=== PATIENT | male | born 1995 | race Caucasian/White ===

== ENCOUNTER 2019-08-30 23:58 | Emergency (ER) | payer BC ==
--- NOTE | 2019-08-31 02:11 | EDM.PDOC ---
ED HPI GENERAL MEDICAL PROBLEM - General Chief Complaint: General Stated Complaint: TOOTH PAIN Time Seen by Provider: 08/31/19 02:05 - History of Present Illness INITIAL COMMENTS - FREE TEXT/NARRATIVE: 23-year-old male presents the emergency room with dental pain. He had an episode with this about 5 to 6 weeks ago was started on antibiotics and this helped however he did not have time to get into see the dentist to have this taken care of. This is left upper rear tooth. Not started to radiate into his sinus and into his ear. Patient is not aware of any drainage. He is not having any facial swelling. No fevers or other associated symptoms. Patient denies any other complaints at this time. Patient is tried some topical cream for this that has not helped he is tried icing it and this is not helped. He used ibuprofen 400 mg this did not help. Left Upper Oral/Mouth Pain Score (Numeric/FACES): 7 - Related Data Allergies Allergy/AdvReac Type Severity Reaction Status Date / Time No Known Allergies Allergy Verified 08/31/19 00:21 Home Meds: Home Meds . [No Known Home Meds] 08/31/19 [History] Past Medical History - Past Health History Medical/Surgical History: Denies Medical/Surgical History Social & Family History - Family History Family Medical History: Noncontributory - Tobacco Use Smoking Status *Q: Former Smoker Used Tobacco, but Quit: Yes Month/Year Tobacco Last Used: 09/2016 - Caffeine Use Caffeine Use: Reports: Coffee - Recreational Drug Use Recreational Drug Use: No ED ROS GENERAL - Review of Systems Review Of Systems: See Below Constitutional: Reports: No Symptoms HEENT: Reports: Dental Pain Respiratory: Reports: No Symptoms Cardiovascular: Reports: No Symptoms GI/Abdominal: Reports: No Symptoms ED EXAM, GENERAL - Physical Exam Exam: See Below Exam Limited By: No Limitations General Appearance: Alert, No Apparent Distress Eye Exam: Right Eye: Normal Inspection Ears: Normal External Exam, Normal Canal, Hearing Grossly Normal, Normal TMs Nose: Normal Inspection, Normal Mucosa, No Blood Throat/Mouth: Normal Lips, Normal Gums, Normal Oropharynx, Normal Voice, No Airway Compromise, Other (Upper rear tooth is tender to palpation minimal surrounding erythema no drainage no other acute abnormalities noted) Head: Atraumatic, Normocephalic Neck: Normal Inspection, Supple, Non-Tender, Full Range of Motion Respiratory/Chest: No Respiratory Distress, Lungs Clear, Normal Breath Sounds Cardiovascular: Regular Rate, Rhythm, No Edema, No Murmur Course - Vital Signs Last Recorded V/S: Last Vital Signs Temp 37.0 C 08/31/19 00:17 Pulse 62 08/31/19 00:17 Resp 18 08/31/19 00:17 BP 159/107 H 08/31/19 00:17 Pulse Ox 98 08/31/19 00:17 Departure - Departure Time of Disposition: 02:23 Disposition: Home, Self-Care 01 Clinical Impression: Dental caries - Discharge Information Referrals: PCP,None [Primary Care Provider] - Forms: ED Department Discharge Additional Instructions: Return to the emergency room with any questions problems or worsening symptoms. Follow-up with a dentist as soon as you can do not wait for the symptoms to return again. You have been started on 2 medications. The first is amoxicillin is an antibiotic take it 3 times a day for 10 days until all gone. The second is Morrow, this is a pain medication take 1 or 2 every 6 hours as needed for pain allow 12 hours after using this medication before driving or returning to work. If he have to take this medication on a regular basis take a stool softener as it can cause constipation. Use ibuprofen during the day if at all possible be sure to take with food. Sepsis Event Note (ED) - Evaluation Sepsis Screening Result: No Definite Risk - Focused Exam Vital Signs: Vital Signs Temp Pulse Resp BP Pulse Ox 08/31/19 00:17 37.0 C 62 18 159/107 H 98
== END 2019-08-31 02:48 | disposition home or self-care (01) ==
LOC: JD.ED 23:58
DX: K02.9 Dental caries, unspecified (principal); Z87.891 Personal history of nicotine dependence
CPT/HCPCS: 99282; 99283